=== PATIENT | female | born 1965 | race Caucasian/White ===

== ENCOUNTER 2024-06-06 12:34 | Outpatient (CLI) | payer MEDICARE, OTHER ==
[2024-06-06] MEDS ORDERED: E-Z-HD 98% W/W 340GM BOT (x-ray ONLY) ONE (12:45)
[2024-06-06] MEDS ORDERED: Barium Sulfate 96% 176 GM BOT (xray ONLY) ONE (12:48)
== END 2024-06-06 12:35 | disposition home or self-care (01) ==
LOC: RAD 12:34
PROVIDERS: ATTEND Physician Assistant Medical
DX: R13.14 Dysphagia, pharyngoesophageal phase (principal); R10.30 Lower abdominal pain, unspecified; R12 Heartburn
CPT/HCPCS: 74220